=== PATIENT | female | born 1955 | race Hispanic/Latino ===

== ENCOUNTER 2019-04-15 13:05 | Emergency (ER) | payer OTHER ==
--- NOTE | 2019-04-15 16:24 | ER ---
Nurse's Notes [facility] Name: Hemalatha Mullins Age: 63 yrs Sex: Female : 1955 Arrival Date: 04/15/2019 Time: 13:15 Bed X-Ray Private MD: Diagnosis: Radiculopathy, cervical region Presentation: 04/15 13:18 Presenting complaint: Patient states: neck pain radiating to back of head that began 1 ss month ago. Pt states "I've been taking meloxicam and gabapentin for the pain and it's not helping". Pt reports right shoulder sx 6 weeks ago. Sling noted to right arm. Transition of care: patient was not received from another setting of care. Onset of symptoms was March 2019. Risk Assessment: Do you want to hurt yourself or someone else? Patient reports no desire to harm self or others. Initial Sepsis Screen: Does the patient meet any 2 criteria? No. Patient's initial sepsis screen is negative. Does the patient have a suspected source of infection? No. Patient's initial sepsis screen is negative. Care prior to arrival: None. 13:18 Method Of Arrival: Ambulatory ss 13:18 Acuity: BIMAL 4 ss Historical: - Allergies: 13:22 No Known Allergies; ss - PMHx: 13:22 Diabetes - IDDM; Hypertension; ss - PSHx: 13:22 right shoulder; ; ss - Immunization history:: Adult Immunizations unknown. - Social history:: Smoking status: Patient/guardian denies using tobacco. - Ebola Screening: : No symptoms or risks identified at this time. Screenin:57 Abuse screen: Denies threats or abuse. Denies injuries from another. Nutritional ca1 screening: No deficits noted. Tuberculosis screening: No symptoms or risk factors identified. Fall Risk None identified. Assessment: 14:17 General: Appears in no apparent distress. comfortable, Behavior is calm, cooperative, ca1 appropriate for age. Pain: Complains of pain in scalp and neck Pain currently is 8 out of 10 on a pain scale. Pain began 3 weeks ago. Neuro: Level of Consciousness is awake, alert, obeys commands, Oriented to person, place, time, situation, Appropriate for age. Cardiovascular: Heart tones S1 S2 present Capillary refill < 3 seconds Patient's skin is warm and dry. Respiratory: Airway is patent Respiratory effort is even, unlabored, Respiratory pattern is regular, symmetrical, Breath sounds are clear bilaterally. GI: Abdomen is round non-distended, Bowel sounds present X 4 quads. Abd is soft and non tender X 4 quads. : No deficits noted. No signs and/or symptoms were reported regarding the genitourinary system. EENT: No deficits noted. No signs and/or symptoms were reported regarding the EENT system. Derm: Skin is intact, is healthy with good turgor, Skin is pink, warm \\T\\ dry. Musculoskeletal: Circulation, motion, and sensation intact. Capillary refill < 3 seconds, Range of motion: limited in right shoulder. 15:27 Reassessment: Patient appears in no apparent distress at this time. Patient and/or ca1 family updated on plan of care and expected duration. Pain level reassessed. Patient is alert, oriented x 3, equal unlabored respirations, skin warm/dry/pink. 16:26 Reassessment: Patient appears in no apparent distress at this time. Patient is alert, ca1 oriented x 3, equal unlabored respirations, skin warm/dry/pink. Vital Signs: 13:22 BP 137 / 89; Pulse 84; Resp 18 S; Temp 97.4(TE); Pulse Ox 98% on R/A; Weight 99.79 kg ss (R); Height 5 ft. 2 in. (157.48 cm) (R); Pain 8/10; 14:17 BP 140 / 84; Pulse 81; Resp 17 S; Pulse Ox 99% on R/A; ca1 15:27 BP 127 / 57; Pulse 75; Resp 16 S; Pulse Ox 98% on R/A; ca1 16:26 BP 131 / 63; Pulse 71; Resp 17 S; Pulse Ox 98% on R/A; ca1 13:22 Body Mass Index 40.24 (99.79 kg, 157.48 cm) ED Course: 13:15 Patient arrived in ED. am2 13:22 Triage completed. ss 13:22 Arm band placed on. ss 13:56 Nury Teresa, RN is Primary Nurse. ca1 13:57 Patient has correct armband on for positive identification. Placed in gown. Bed in low ca1 position. Call light in reach. Side rails up X 1. Pulse ox on. NIBP on. Warm blanket given. 13:57 No provider procedures requiring assistance completed. ca1 14:28 Catarino Cordova PA is PHCP. jr8 14:28 Carlos Jones MD is Attending Physician. jr8 15:54 XRAY C Spine Ap/lat In Process Unspecified. EDMS 16:40 Patient did not have IV access during this emergency room visit. ca1 Administered Medications: No medications were administered Outcome: 16:24 Discharge ordered by . jr8 16:40 Discharged to home ambulatory, with family. ca1 16:40 Condition: stable 16:40 Discharge instructions given to patient, Instructed on discharge instructions, follow up and referral plans. medication usage, Demonstrated understanding of instructions, follow-up care, medications, Prescriptions given X 1. 16:54 Patient left the ED. ca1 Signatures: Dispatcher [employer] EDVT Aruna Salinas, RN RN Catarino Cordova PA PA jr8 Rafia Graham am2 Nury Teresa RN RN ca1
--- NOTE | 2019-04-15 16:25 | EDPHYS ---
Physician Documentation [facility] Name: Hemalatha Mullins Age: 63 yrs Sex: Female : 1955 Arrival Date: 04/15/2019 Time: 13:15 Bed X-Ray Private MD: ED Physician Carlos Jones HPI: 04/15 15:20 This 63 yrs old Female presents to ER via Ambulatory with complaints of Neck jr8 Pain, >24Hrs Old, Headache. 15:20 The patient or guardian complains of pain. Onset: The symptoms/episode began/occurred 1 jr8 month(s) ago. Location: right shoulder and scalp. Pt had right rotator cuff sx 6 weeks ago and about a month ago pt began to experience neck pain that radiates to base of uenice and right shoulder, is on meloxicam and flexeril in addition to gabapentin for neuropathy. states pain is ok but cannot tolerate it at night. Historical: - Allergies: 13:22 No Known Allergies; ss - PMHx: 13:22 Diabetes - IDDM; Hypertension; ss - PSHx: 13:22 right shoulder; ; ss - Immunization history:: Adult Immunizations unknown. - Social history:: Smoking status: Patient/guardian denies using tobacco. - Ebola Screening: : No symptoms or risks identified at this time. ROS: 15:21 Constitutional: Negative for fever, chills, and weight loss, Eyes: Negative for injury, jr8 pain, redness, and discharge, ENT: Negative for injury, pain, and discharge, Cardiovascular: Negative for chest pain, palpitations, and edema, Respiratory: Negative for shortness of breath, cough, wheezing, and pleuritic chest pain, Abdomen/GI: Negative for abdominal pain, nausea, vomiting, diarrhea, and constipation, Back: Negative for injury and pain, MS/Extremity: Negative for injury and deformity, Skin: Negative for injury, rash, and discoloration, Neuro: Negative for headache, weakness, numbness, tingling, and seizure. 15:21 Neck: Positive for pain with movement. Exam: 15:21 Constitutional: This is a well developed, well nourished patient who is awake, alert, jr8 and in no acute distress. Head/Face: Normocephalic, atraumatic. Eyes: Pupils equal round and reactive to light, extra-ocular motions intact. Lids and lashes normal. Conjunctiva and sclera are non-icteric and not injected. Cornea within normal limits. Periorbital areas with no swelling, redness, or edema. ENT: Nares patent. No nasal discharge, no septal abnormalities noted. Tympanic membranes are normal and external auditory canals are clear. Oropharynx with no redness, swelling, or masses, exudates, or evidence of obstruction, uvula midline. Mucous membranes moist. Neck: Trachea midline, no thyromegaly or masses palpated, and no cervical lymphadenopathy. Supple, full range of motion without nuchal rigidity, or vertebral point tenderness. No Meningismus. Chest/axilla: Normal chest wall appearance and motion. Nontender with no deformity. No lesions are appreciated. Cardiovascular: Regular rate and rhythm with a normal S1 and S2. No gallops, murmurs, or rubs. Normal PMI, no JVD. No pulse deficits. Respiratory: Lungs have equal breath sounds bilaterally, clear to auscultation and percussion. No rales, rhonchi or wheezes noted. No increased work of breathing, no retractions or nasal flaring. Abdomen/GI: Soft, non-tender, with normal bowel sounds. No distension or tympany. No guarding or rebound. No evidence of tenderness throughout. Skin: Warm, dry with normal turgor. Normal color with no rashes, no lesions, and no evidence of cellulitis. Neuro: Awake and alert, GCS 15, oriented to person, place, time, and situation. Cranial nerves II-XII grossly intact. Motor strength 5/5 in all extremities. Sensory grossly intact. Cerebellar exam normal. Normal gait. 15:21 Musculoskeletal/extremity: pain with ROM of right shoulder . Vital Signs: 13:22 BP 137 / 89; Pulse 84; Resp 18 S; Temp 97.4(TE); Pulse Ox 98% on R/A; Weight 99.79 kg ss (R); Height 5 ft. 2 in. (157.48 cm) (R); Pain 8/10; 14:17 BP 140 / 84; Pulse 81; Resp 17 S; Pulse Ox 99% on R/A; ca1 15:27 BP 127 / 57; Pulse 75; Resp 16 S; Pulse Ox 98% on R/A; ca1 16:26 BP 131 / 63; Pulse 71; Resp 17 S; Pulse Ox 98% on R/A; ca1 13:22 Body Mass Index 40.24 (99.79 kg, 157.48 cm) MDM: 14:31 Patient medically screened. [facility] 16:19 Data reviewed: vital signs, nurses notes, radiologic studies, and as a result, I will jr8 discharge patient. Data interpreted: Pulse oximetry: on room air is 98 %. Interpretation: normal. Counseling: I had a detailed discussion with the patient and/or guardian regarding: the historical points, exam findings, and any diagnostic results supporting the discharge/admit diagnosis, radiology results. ED course: Pt is well controlled diabetic, taking NSAIDS and muscle relaxants already, pain is ok but worse at night. No acute neurovascular deficits noted. 04/15 15:02 Order name: XRAY C Spine Ap/lat; Complete Time: 16:53 jr8 Administered Medications: No medications were administered Disposition: 04/16 07:39 Co-signature as Attending Physician, Carlos Jones MD I agree with the assessment and [facility] plan of care. Disposition: 04/15/19 16:24 Discharged to Home. Impression: Radiculopathy, cervical region. - Condition is Stable. - Discharge Instructions: Cervical Radiculopathy, Musculoskeletal Pain, Neuropathic Pain. - Prescriptions for Medrol (Reuben) 4 mg Oral Tablets, Dose Pack - take 1 tablet by ORAL route as directed - follow package instructions; 1 packet. - Medication Reconciliation Form, Thank You Letter form. - Follow up: Private Physician; When: As needed; Reason: Recheck today's complaints, Re-evaluation by your physician. - Problem is an ongoing problem. - Symptoms are unchanged. Signatures: Dispatcher [employer] EDCarlos Gilliland MD MD cha Smirch, Shelby, RN RN Catarino Cordova PA PA jr8 Nury Teresa RN RN ca1 Corrections: (The following items were deleted from the chart) 04/15 16:54 16:24 04/15/2019 16:24 Discharged to Home. Impression: Radiculopathy, cervical region. ca1 Condition is Stable. Forms are Medication Reconciliation Form, Thank You Letter, Antibiotic Education, Prescription Opioid Use. Follow up: Private Physician; When: As needed; Reason: Recheck today's complaints, Re-evaluation by your physician. Problem is an ongoing problem. Symptoms are unchanged. jr8
--- NOTE | 2019-04-15 16:51 | RAD REPORT ---
EXAM DESCRIPTION: RAD - C Spine Ap/Lat - 04/15/2019 4:09 pm CLINICAL HISTORY: Neck pain FINDINGS: No fracture or dislocation is seen. 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
[2019-04-15 17:01] VITALS: O2SAT 98
[2019-04-15 17:09] VITALS: TEMP 98.4
[2019-04-15 17:10] VITALS: BP 131/85
== END 2019-04-15 16:54 | disposition home or self-care (01) ==
LOC: ER 13:05
DX: M54.12 Radiculopathy, cervical region (principal)
CPT/HCPCS: 72040; 99283